=== PATIENT | male | born 1970 | race African-American/Black ===

== ENCOUNTER 2016-08-01 14:30 | Emergency (ER) | payer SELFPAY ==
[~2016-08-01] VITALS: Ht 185.4 cm; Wt 120.2 kg
[2016-08-01] MEDS ORDERED: cloNIDine HCL 0.1 MG TAB ONE (14:34)
[2016-08-01] MEDS ORDERED: cloNIDine HCL 0.1 MG TAB PO ONE (15:00)
[2016-08-01 15:42] LABS: Basophils # (auto) 0 uL; Basophils % (auto) 0.5 % (0.0-2.0); Eosinophils # (auto) 0.2 uL; Eosinophils % (auto) 2.1 % (0.0-7.0); Hematocrit 44.5 % (41.0-53.0); Hemoglobin 14.8 g/dL (13.5-17.5); Lymphocytes # (auto) 3.2 uL; Lymphocytes % (auto) 31.3 % (10.0-50.0); Mean Corpuscular Hemoglobin 29.8 pg (28.0-32.0); Mean Corpuscular Hgb Conc. 33.3 g/dL (32.0-36.0); Mean Corpuscular Volume 89.4 fL (80.0-100.0); Mean Platelet Volume 8.7 fL (7.4-10.4); Monocytes # (auto) 0.9 uL; Monocytes % (auto) 8.8 % (0.0-12.0); Neutrophils # (auto) 5.8 uL; Neutrophils % (auto) 57.3 % (37.0-80.0); Platelet Count (auto) 312 10^3/uL (140-450); Red Cell Distribution Width 14.5 % (11.6-16.0); White Blood Cell 10.1 10^3/uL (4.4-10.8)
[2016-08-01 16:05] LABS: Albumin 4.1 g/dL (3.4-5.0); Alkaline Phosphatase 114 U/L (45-117); Anion Gap 6 (5-15); Aspartate Aminotransferase 21 U/L (15-37); BUN/Creatinine Ratio 13.6; Bilirubin, Total 0.8 mg/dL (0.2-1.0); Blood Urea Nitrogen 14 mg/dL (7-18); Carbon Dioxide 27 mmol/L (21-32); Chloride 105 mmol/L (98-107); GFR African American 100 mL/min; GFR Non-African American 83 mL/min; Glucose 76 mg/dL (74-106); Magnesium 2.4 mg/dL (1.6-2.6); Potassium 3.9 mmol/L (3.5-5.1); Sodium 138 mmol/L (136-145); Total Protein 8.2 g/dL (6.4-8.2)
[2016-08-01 18:17] VITALS: BP 131/92
== END 2016-08-01 18:37 | disposition home or self-care (01) ==
LOC: ER 14:39
DX: R07.89 Other chest pain (principal); E78.5 Hyperlipidemia, unspecified
CPT/HCPCS: 36415; 71020; 80053; 83735; 84484; 85025; 93005